=== PATIENT | male | born 1950 | race Two or more races ===

== ENCOUNTER 2016-08-06 13:20 | Emergency (ER) | payer OTHER ==
[~2016-08-06] VITALS: Ht 177.8 cm; Wt 112.9 kg
[2016-08-06 14:45] VITALS: BP 125/76
[2016-08-06] MEDS ORDERED: cefTRIAXone SOD 1,000 MG VL IM ONE (15:00)
[2016-08-06] MEDS ORDERED: SILVER SULFADIAZINE 1 % TOPICAL CREAM 50GM TOP ONE (15:00)
== END 2016-08-06 15:43 | disposition home or self-care (01) ==
LOC: ER 13:20
DX: T25.231A Burn of second degree of right toe(s) (nail), initial encounter (principal); E11.9 Type 2 diabetes mellitus without complications; I10 Essential (primary) hypertension; F12.10 Cannabis abuse, uncomplicated; X08.8XXA Exposure to other specified smoke, fire and flames, initial encounter; Y93.89 Activity, other specified; Y99.8 Other external cause status; Y92.89 Other specified places as the place of occurrence of the external cause
CPT/HCPCS: 16000; 96372; 99284; J0696; 16020

== ENCOUNTER 2017-05-30 01:42 | Emergency (ER) | payer OTHER ==
[~2017-05-30] VITALS: Ht 172.7 cm; Wt 90.7 kg
[2017-05-30 02:24] LABS: Eosinophils # (auto) 0.5 uL; Lymphocytes # (auto) 1.3 uL; Mean Platelet Volume 8.4 fL (6.9-10.8); Monocytes # (auto) 0.5 uL; Neutrophils # (auto) 5.1 uL; Nucleated Red Blood Cells % 0.2 %; White Blood Cell 7.5 10^3/uL (4.4-10.8)
[2017-05-30 02:26] LABS: Basophils # (auto) 0.1 uL; Basophils % (auto) 0.7 % (0.0-2.0); Eosinophils % (auto) 7.3 % (0.0-7.0); Hematocrit 51.6 % (41.0-53.0); Hemoglobin 18.2 g/dL (13.5-17.5); Lymphocytes % (auto) 16.9 % (10.0-50.0); Mean Corpuscular Hemoglobin 33.5 pg (28.0-32.0); Mean Corpuscular Hgb Conc. 35.3 g/dL (32.0-36.0); Monocytes % (auto) 7.2 % (0.0-12.0); Neutrophils % (auto) 67.9 % (37.0-80.0); Platelet Count (auto) 194 10^3/uL (140-450); Red Cell Distribution Width 14.1 % (11.8-14.3)
[2017-05-30] MEDS ORDERED: ONDANSETRON HCL 4 MG/2 ML VIAL ONE (02:33)
[2017-05-30] MEDS ORDERED: MORPHINE SULFATE 4 MG/ML SYRG ONE ×2 (02:41→04:27)
[2017-05-30 02:43] LABS: Albumin 3.7 g/dL (3.4-5.0); Anion Gap 10 (5-15); Blood Urea Nitrogen 14 mg/dL (7-18); Carbon Dioxide 28 mmol/L (21-32); Chloride 98 mmol/L (98-107); Glucose 186 mg/dL (74-106); Magnesium 1.9 mg/dL (1.6-2.6); Potassium 3.2 mmol/L (3.5-5.1); Sodium 136 mmol/L (136-145)
[2017-05-30 02:44] LABS: Aspartate Aminotransferase 16 U/L (15-37); BUN/Creatinine Ratio 15.7; GFR African American 111 mL/min; GFR Non-African American 91 mL/min
[2017-05-30 02:45] LABS: Temperature: 21.3 C (20.0-25.0)
[2017-05-30] MEDS ORDERED: ONDANSETRON HCL 4 MG/2 ML VIAL IV ONE ×2 (02:45→04:30)
[2017-05-30] MEDS ORDERED: MORPHINE SULF INJ 2 MG/ML SYRINGE 1ML IV ONE ×2 (02:45→04:30)
[2017-05-30 02:49] LABS: Alkaline Phosphatase 67 U/L (45-117); Bilirubin, Total 0.6 mg/dL (0.2-1.0); Total Protein 8.5 g/dL (6.4-8.2)
[2017-05-30 02:55] LABS: Amylase 110 U/L (25-115)
[2017-05-30 08:01] LABS: Urine RBC None Seen /hpf (0 - 3)
[2017-05-30 08:36] LABS: Urine Bilirubin Negative (Negative); Urine Blood Negative /uL (Negative); Urine Color Yellow (Yellow); Urine Glucose 4+ mg/dL (Normal); Urine Ketone 2+ (Negative); Urine Nitrite Negative (Negative); Urine Squamous Epithelial Cell FEW /hpf (<5); Urine WBC Clumps PRESENT /hpf (None Seen)
[2017-05-30] MEDS ORDERED: NALBUPHINE HCL 10 MG/1ml INJECTION IV ONE (10:00)
[2017-05-30] MEDS ORDERED: POTASSIUM CHL 20 Meq TABLET PO ONE (11:30)
[2017-05-30] MEDS ORDERED: LEV100T PO (11:35)
[2017-05-30] MEDS ORDERED: ONDA4TAB5 PO (11:35)
[2017-05-30] MEDS ORDERED: ACETTAB85 PO (11:35)
[2017-05-30 11:38] VITALS: BP 117/75
== END 2017-05-30 12:01 | disposition home or self-care (01) ==
LOC: ER 01:45
DX: R07.9 Chest pain, unspecified (principal); K85.90 Acute pancreatitis without necrosis or infection, unspecified; E05.90 Thyrotoxicosis, unspecified without thyrotoxic crisis or storm; E11.9 Type 2 diabetes mellitus without complications; I10 Essential (primary) hypertension; E78.5 Hyperlipidemia, unspecified
CPT/HCPCS: 36415; 71010; 74176; 80053; 81001; 82150; 82962; 83690; 83735; 83880; 84443; 84484; 85025; 85379; 93005; 96374; 96375; 96376; 99285; J2270; J2300; J2405